=== PATIENT | male | born 1990 | race Caucasian/White ===

== ENCOUNTER 2020-03-21 11:36 | Outpatient (CLI) | payer OTHER, SELFPAY ==
[2020-03-22 19:45] LABS: SARS-CoV-2 RNA PCR Positive
== END 2020-03-21 11:37 | disposition home or self-care (01) ==
LOC: CHSLAB 11:40
PROVIDERS: PCP Nurse Practitioner Family; Visit Provider Nurse Practitioner Family
DX: U07.1 COVID-19 (principal)
CPT/HCPCS: 87635; C9803; U0003

== ENCOUNTER 2024-06-04 12:00 | Outpatient (CLI) | payer OTHER, SELFPAY ==
[2024-06-04 12:10] LABS: Basophils Absolute Auto 0.05 K/mm3 (0.00-0.10); Basophils Percent Auto 0.7 % (0.0-1.0); Eosinophils Percent Auto 1.5 % (1.0-6.0); Hematocrit 45.6 % (40.0-54.0); Hemoglobin 16.3 g/dL (14.0-18.0); Immature Granulocyte Absolute 0.01 K/mm3 (0.00-0.00); Immature Granulocyte Percent A 0.1 % (0.0-0.0); Lymphocytes Absolute Auto 2.56 K/mm3 (1.10-4.50); Lymphocytes Percent Auto 37.2 % (18.0-42.0); Mean Corpuscular HGB Conc 35.7 g/dL (32-36); Mean Corpuscular Hemoglobin 30.6 pg (27.0-31.0); Mean Corpuscular Volume 85.7 fL (78.0-102.0); Mean Platelet Volume 9.6 fl (8.7-11.0); Monocytes Absolute Auto 0.53 K/mm3 (0.10-0.90); Monocytes Percent Auto 7.7 % (2.0-11.0); Neutrophils Absolute Auto 3.64 K/mm3 (1.70-7.20); Neutrophils Percent Auto 52.8 % (50.0-70.0); Platelet Count Result 173 K/mm3 (150-420); Red Blood Count 5.32 M/mm3 (4.70-6.10); Red Cell Distribution Width 12.1 % (11.6-14.4); White Blood Count 6.9 K/mm3 (4.8-10.8)
[2024-06-04 17:24] LABS: Ferritin 177 ng/mL (26-388); Iron 165 ug/dL (65-175); Percent Iron Saturation 41 % (12-57)
== END 2024-06-04 12:01 | disposition home or self-care (01) ==
LOC: CHSLAB 12:03
PROVIDERS: PCP Nurse Practitioner Family; Visit Provider Nurse Practitioner Family
DX: E83.119 Hemochromatosis, unspecified (principal)
CPT/HCPCS: 36415; 82728; 83540; 83550; 85025

== ENCOUNTER 2025-03-04 11:59 | Outpatient (RCR) | payer OTHER, SELFPAY ==
[2025-02-18 14:15] VITALS: BP 129/70; PULSE 57; RESP 14; TEMP 36.4; O2SAT 99
[2025-02-18] MEDS: RABIES VACCINE (RABAVERT) 2.5 UNITS VIAL IM (14:18)
[2025-02-18 14:21] VITALS: BMI 23.6
[2025-02-21] MEDS: RABIES VACCINE (RABAVERT) 2.5 UNITS VIAL IM (11:05)
--- NOTE | 2025-02-21 11:05 | PC.NURSE ---
Patient here for second rabies vaccine. See down time charting.
[2025-02-25 15:04] VITALS: BP 120/67; PULSE 67; RESP 18; TEMP 36.7; O2SAT 98
[2025-02-25] MEDS: RABIES VACCINE (RABAVERT) 2.5 UNITS VIAL IM (15:09)
[2025-03-04 12:30] VITALS: BP 122/64; PULSE 64; RESP 14; TEMP 36.8; O2SAT 99; BMI 23.6
[2025-03-04] MEDS: RABIES VACCINE (IMOVAX) 2.5 UNITS VIAL IM (12:38)
== END 2025-03-04 12:00 | disposition home or self-care (01) ==
LOC: CHSTREATRM 11:59
PROVIDERS: PCP Family Medicine; Visit Provider Family Medicine
DX: Z20.3 Contact with and (suspected) exposure to rabies (principal); Z29.14 Encounter for prophylactic rabies immune globulin
CPT/HCPCS: 90471; 90675